=== PATIENT | female | born 1985 | race Caucasian/White ===

== ENCOUNTER 2016-07-03 08:08 | Emergency (ER) | payer SELFPAY ==
[2016-07-03 08:55] LABS: Basophils % (Auto) 0.3 % (0.0-1.8); Eosinophils % (Auto) 2.8 % (0.0-4.3); Hemoglobin 12.8 gm/dl (10.1-14.3); Mean Corpuscular HGB Conc 33 % (30-34); Mean Corpuscular Hemoglobin 28 pg (28-32); Mean Corpuscular Volume 85 fl (79-97); Platelet Count 258 K/mm3 (140-440); Red Blood Count 4.57 M/mm3 (3.65-5.03); Red Cell Distribution Width 14.2 % (13.2-15.2); White Blood Count 10.5 K/mm3 (4.5-11.0)
--- NOTE | 2016-07-03 14:23 | Emergency Department Report ---
ED Female HPI - General Chief complaint: Vaginal Bleeding Stated complaint: 4WKS PREG VAG BLEED Time Seen by Provider: 07/03/16 14:22 Source: patient Mode of arrival: Ambulatory Limitations: No Limitations - Related Data Home Medications Medication Instructions Recorded Confirmed Last Taken No Known Home Medications [No 07/03/16 07/03/16 Unknown Reported Home Medications] Allergies Allergy/AdvReac Type Severity Reaction Status Date / Time No Known Allergies Allergy Unverified 07/03/16 08:12 ED Review of Systems ROS: Stated complaint: 4WKS PREG VAG BLEED Other details as noted in HPI ED Past Medical Hx - Past Medical History Previous Medical History?: Yes Additional medical history: Vaginal delivery x 1 - Surgical History Past Surgical History?: No - Social History Smoking Status: Never Smoker Substance Use Type: None - Medications Home Medications: Home Medications Medication Instructions Recorded Confirmed Last Taken Type No Known Home Medications [No 07/03/16 07/03/16 Unknown History Reported Home Medications] ED Physical Exam - General Limitations: No Limitations ED Course Vital Signs 07/03/16 08:12 Temperature 97.8 F Pulse Rate 63 Respiratory 18 Rate Blood Pressure 111/58 O2 Sat by Pulse 100 Oximetry ED Medical Decision Making - Lab Data Result diagrams: 07/03/16 08:26 Critical care attestation.: If time is entered above; I have spent that time in minutes in the direct care of this critically ill patient, excluding procedure time. ED Disposition Condition: Stable Referrals: PRIMARY CARE, [Primary Care Provider] - 3-5 Days
--- NOTE | 2016-07-03 15:15 | Ultrasound Report ---
ULTRASOUND OB LESS THAN 14 WEEKS/FETUS ULTRASOUND OB TRANSVAGINAL HISTORY: Vaginal bleeding during , beta hCG level 135.8. TECHNIQUE: Transabdominal and transvaginal ultrasound with color and spectral doppler interrogation. The uterus measures 11 x 6 x 6 cm. No uterine mass is appreciated. The endometrial stripe measures 8 mm. The cervix is unremarkable. No intrauterine is demonstrated. No heart tones. The right ovary measures 3.2 x 1.8 x 3.2 cm. A 1.2 cm cyst is identified in the right ovary. The left ovary is unremarkable measuring 3.0 x 2.1 x 2.1 cm. No pelvic fluid collection. IMPRESSION: No intrauterine is visualized. This may represent a spontaneous . Please correlate with the patient's clinical presentation. Please note that an ectopic is not entirely excluded at this time.
--- NOTE | 2016-07-03 15:29 | Emergency Department Report ---
HPI - General Chief Complaint: Vaginal Bleeding Time Seen by Provider: 07/03/16 14:22 - HPI HPI: Chief complaint: Vaginal bleeding HPI: Patient is 30-year-old 2 para 1 female states she had a positive home test about 10 days ago. Patient's last menstrual period was June 01. Patient states she is using about 2 pads a day. Bleeding started off slowly Sunday with some left lower quadrant pain and has gotten a little worse over the last 2 days. Mode of arrival: [private car] Source: [Patient] through the contract manager Began: Sunday Duration: 3 days Context: See above Quality: Cramping Severity: Mild Improved with: Nothing Worsened with: Nothing Associated signs and symptoms: See above ED Past Medical Hx - Past Medical History Previous Medical History?: Yes Additional medical history: Vaginal delivery x 1 - Surgical History Past Surgical History?: No - Social History Smoking Status: Never Smoker Substance Use Type: None - Medications Home Medications: Home Medications Medication Instructions Recorded Confirmed Last Taken Type No Known Home Medications [No 07/03/16 07/03/16 Unknown History Reported Home Medications] ED Review of Systems ROS: Stated complaint: 4WKS PREG VAG BLEED Other details as noted in HPI ROS Constitutional: No fever ENT: No uri symptoms Cardiovascular: No chest pain Respiratory: No sob or cough GI: No nausea vomiting or diarrhea : No dysuria frequency or urgency, Skin: No rash Neuro: No focal weakness or numbness Psych: No depression Nate/lymph: No edema Physical Exam - Physical Exam Vital Signs: Vital Signs 07/03/16 08:12 Temperature 97.8 F Pulse Rate 63 Respiratory 18 Rate Blood Pressure 111/58 O2 Sat by Pulse 100 Oximetry Physical Exam: GENERAL: The patient is well-developed well-nourished . HEENT: Normocephalic. Atraumatic. Extraocular motions are intact. Patient has moist mucous membranes. NECK: Supple. No meningitic signs are noted. There is no adenopathy noted. CHEST/LUNGS: Clear to auscultation. There is no respiratory distress noted. HEART/CARDIOVASCULAR: Regular. There is no tachycardia. There is no gallop rub or murmur. ABDOMEN: Abdomen is soft, nontender. No guarding or rebound. Patient has normal bowel sounds. There is no abdominal distention. SKIN: There is no rash. There is no edema. There is no diaphoresis. NEURO: The patient is awake, alert, and oriented. The patient is cooperative. The patient has no focal neurologic deficits. The patient has normal speech. MUSCULOSKELETAL: There is no tenderness or deformity. There is no limitation range of motion. There is no evidence of acute injury. ED Course Vital Signs 07/03/16 08:12 Temperature 97.8 F Pulse Rate 63 Respiratory 18 Rate Blood Pressure 111/58 O2 Sat by Pulse 100 Oximetry - Reevaluation(s) Reevaluation #1: 07/03/16 15:19 As there is no IUP and the patient's Quant is very low there are several possibilities. Patient is either extremely early in her , has an ectopic or has had a miscarriage. Patient was advised of these possibilities and will have her follow-up for repeat Quant and ultrasound with [facility]. ED Medical Decision Making - Lab Data Result diagrams: 07/03/16 08:26 Laboratory Tests 07/03/16 08:26 HCG, Quant 135.8 H - Radiology Data Radiology results: report reviewed (ultrasound shows no IUP. ) Critical care attestation.: If time is entered above; I have spent that time in minutes in the direct care of this critically ill patient, excluding procedure time. ED Disposition Clinical Impression: Vaginal bleeding Disposition: DISCHARGED TO HOME OR SELFCARE Is pt being admited?: No Does the pt Need Aspirin: No Condition: Stable Instructions: Threatened Miscarriage (ED) Additional Instructions: It is too early to tell if you have had a miscarriage or if you have an early or if you have a tubal . It is very important he be rechecked within 2 days to have her blood rechecked and possibly have another ultrasound if your pain and bleeding persist. You need to follow-up with OB/ [facility] referral or if you're unable to do that follow-up with an emergency department for further evaluation. Referrals: [facility] [Provider Group] - 3-5 Days Time of Disposition: 15:22 Print Language: WELSH
[2016-07-03 16:12] VITALS: BP 106/58
== END 2016-07-03 16:23 | disposition home or self-care (01) ==
LOC: ED 08:08
DX: N93.9 Abnormal uterine and vaginal bleeding, unspecified (principal)
CPT/HCPCS: 36415; 76801; 76817; 84702; 85025; 86850; 86900; 86901